=== PATIENT | male | born 1990 | race Hispanic/Latino ===

== ENCOUNTER 2018-01-09 18:42 | Emergency (ER) | payer SELFPAY ==
[2018-01-09] MEDS ORDERED: FENTANYL CITR 100 MCG/2 ML ONE (19:11)
[2018-01-09] MEDS ORDERED: ONDANSETRON 4 MG/2 ML VIAL ONE (19:11)
--- NOTE | 2018-01-09 19:30 | RAD REPORT ---
EXAM DESCRIPTION: CT - CTHCSPWOC - 01/09/2018 7:19 pm CLINICAL HISTORY: Fall, head and neck injury COMPARISON: None. TECHNIQUE: Axial 5 mm thick images of the head were obtained. Axial 2 mm thick images of the cervic al spine were obtained with sagittal and coronal reconstruction images generated and reviewed. All CT scans are performed using dose optimization technique as appropriate and may include automated exposure control or mA/KV adjustment according to patient size. FINDINGS: No intracranial hemorrhage, mass, edema or acute intracranial finding. Ventricles are normal. No extr a-axial fluid collections. Mastoid air cells and paranasal sinuses are clear. No globe or orbit abnor mality seen. Cervical body height and alignment are normal. No disk space narrowing. No fracture or acute bony abn ormality. No paraspinal mass or hematoma. IMPRESSION: Negative CT head examination for acute or significant finding. Negative CT cervical spine examination for acute or significant finding.
[2018-01-09 19:33] LABS: Absolute Lymphocytes (CBC) 0.8 K/uL (0.7-4.9); Absolute Neutrophil 6.4 K/uL (1.8-8.0); Basophils % 0.3 % (0-1.3); Eosinophils % 0.5 % (0-4.4); Hematocrit 41.4 % (39.6-49.0); Lymphocytes % 10.1 % (15.3-44.8); MCH 30.2 pg (27.0-35.0); MCV 89.1 fL (80-100); MPV 9.5 fL (7.6-11.3); RBC Red Blood Cell Count 4.65 M/uL (4.33-5.43)
[2018-01-09 19:44] LABS: Potassium 3.6 mEq/L (3.6-5.0)
--- NOTE | 2018-01-09 20:35 | RAD REPORT ---
EXAM DESCRIPTION: RAD - Lumbar Spine 3 Views - 01/09/2018 8:01 pm CLINICAL HISTORY: Fall, back pain COMPARISON: None. FINDINGS: A three-view lumbar spine examination was performed. Lumbar bodies are normal in height an d alignment. No fracture or acute bony process seen. No disc space narrowing. No other significant fi ndings. No pars defects identified. IMPRESSION: Negative Lumbar Spine examination.
--- NOTE | 2018-01-09 20:35 | RAD REPORT ---
EXAM DESCRIPTION: RAD - Thoracic Spine Ap/Lat - 01/09/2018 8:02 pm CLINICAL HISTORY: Fall, thoracic pain COMPARISON: None. FINDINGS: AP, swimmer's & lateral views of the thoracic spine were obtained. Thoracic bodies are nor mal in height and alignment. There are no acute or destructive bony processes seen. No paraspinal mas ses are identified. No disc space narrowing. IMPRESSION: Negative thoracic spine examination.
--- NOTE | 2018-01-09 20:35 | RAD REPORT ---
EXAM DESCRIPTION: RAD - Pelvis - 01/09/2018 8:02 pm CLINICAL HISTORY: Fall, pelvic pain COMPARISON: None. TECHNIQUE: AP imaging of the pelvis was obtained. FINDINGS: No fracture. No dislocation of either femur. SI joints and pubic symphysis are normal. No soft tissue abnormality. IMPRESSION: Negative pelvis
--- NOTE | 2018-01-09 20:36 | RAD REPORT ---
EXAM DESCRIPTION: RAD - Chest Single View - 01/09/2018 8:07 pm CLINICAL HISTORY: Fall, chest trauma COMPARISON: None. TECHNIQUE: AP portable chest image was obtained 1957 hours . FINDINGS: Lungs are clear. Heart and vasculature are normal. No measurable pleural effusion and no p neumothorax. No gross bony abnormality seen. No acute aortic findings suspected. IMPRESSION: No acute cardiopulmonary process.
--- NOTE | 2018-01-09 20:37 | ER ---
Nurse's Notes [facility] Name: Kishore Gupta Age: 27 yrs Sex: Male : 1990 Arrival Date: 01/09/2018 Time: 18:43 Bed 30 Private MD: Diagnosis: Superficial injury of head;Strain of muscle, fascia and tendon at neck level Presentation: 01/09 18:52 Presenting complaint: Patient states: Fell on top of head approx 90 min [employer]. Denies aj LOC. Reports neck and shoulder pain. Swelling noted to top of head. Transition of care: patient was not received from another setting of care. Mechanism of Injury: resulted from a fall. Onset of symptoms was January 09, 2018. Care prior to arrival: None. 18:52 Method Of Arrival: Ambulatory aj 18:52 Acuity: RAUL 3 aj Triage Assessment: 18:54 General: Appears in no apparent distress. uncomfortable, Behavior is calm, cooperative, aj appropriate for age. Pain: Complains of pain in back of neck and posterior chest Pain currently is 7 out of 10 on a pain scale. Neuro: Level of Consciousness is awake, alert, obeys commands, Oriented to person, place, time, situation, Appropriate for age Reports. Respiratory: Airway is patent Respiratory effort is even, unlabored, Respiratory pattern is regular, symmetrical. Derm: Skin is intact, is healthy with good turgor, Skin is pink, warm \T\ dry. normal. Historical: - Allergies: 18:54 No Known Allergies; aj - Home Meds: 18:54 None [Active]; aj - PMHx: 18:54 None; aj - PSHx: 18:54 None; aj - Immunization history:: Adult Immunizations up to date. - Social history:: Smoking status: Patient/guardian denies using tobacco. - Family history:: not pertinent. - Hospitalizations: : No recent hospitalization is reported. Screenin:05 Abuse screen: Denies threats or abuse. rk2 19:05 Nutritional screening: No deficits noted. Tuberculosis screening: No symptoms or risk rk2 factors identified. Fall Risk None identified. Assessment: 19:05 General: Appears in no apparent distress. well groomed, well developed, well nourished. rk2 19:05 Pain: Complains of pain in top of head and C6 and C5 and C4 and back of neck. Neuro: rk2 Level of Consciousness is alert, obeys commands, Oriented to person, place, time, situation, [employer] are equal bilaterally Pupils are PERRLA. Respiratory: Airway is patent Respiratory effort is even, unlabored, Respiratory pattern is regular, symmetrical. Derm: Skin is pink, warm \T\ dry. 20:20 Reassessment: Pt. returned from CT and medications given. Pt. appears to be in no rk2 obvious distress... no needs voiced \T\ this time. \T\ bedside. Vital Signs: 18:54 BP 157 / 100; Pulse 94; Resp 20; Temp 99.2; Pulse Ox 100% on R/A; Weight 106.59 kg; aj Height 5 ft. 8 in. (172.72 cm); Pain 7/10; 20:14 BP 135 / 86; Pulse 87; Resp 17; Pulse Ox 98% ; rk2 20:51 BP 124 / 78; Pulse 89; Resp 16; Pulse Ox 98% on R/A; rk2 18:54 Body Mass Index 35.73 (106.59 kg, 172.72 cm) aj [place] Coma Score: 18:52 Eye Response: spontaneous(4). Verbal Response: oriented(5). Motor Response: obeys commands(6). Total: 15. ED Course: 18:43 Patient arrived in ED. as 18:54 Triage completed. aj 18:54 Arm band placed on right wrist. Patient placed in an exam room. C-collar applied. aj 19:04 Carl Hung MD is Attending Physician. wa 19:05 Patient has correct armband on for positive identification. Bed in low position. Call rk2 light in reach. Side rails up X2. 19:05 Inserted saline lock: 18 gauge in right antecubital area, using aseptic technique. rk2 19:08 Kathe Duenas, RN is Primary Nurse. rk2 19:10 Radiology exam delayed due to PT GOING TO CT FIRST. ml 19:[address] via stretcher. kc3 19:18 CT completed. Patient tolerated procedure well. Patient moved to radiology. kc3 19:18 CT Head C Spine In Process Unspecified. EDMS 19:23 XRAY Thoracic Spine (Ap/lat) Sent. rk2 19:23 XRAY Lumbar Spine (3 Views) Sent. rk2 19:24 Attending Physician role handed off by Carl Hung MD cha 19:24 Andrew Varela MD is Attending Physician. dominick 19:56 XRAY Pelvis In Process Unspecified. EDMS 19:56 XRAY Chest (1 view) In Process Unspecified. EDMS 19:56 XRAY Lumbar Spine (3 Views) In Process Unspecified. EDMS 19:56 XRAY Thoracic Spine (Ap/lat) In Process Unspecified. EDMS 20:51 No provider procedures requiring assistance completed. IV discontinued. rk2 Administered Medications: 20:21 Drug: Zofran 4 mg Route: IVP; Site: right antecubital; rk2 20:45 Follow up: Response: No adverse reaction rk2 20:22 Drug: fentaNYL (PF) 75 mcg Route: IVP; Site: right antecubital; rk2 20:45 Follow up: Response: No adverse reaction; Pain is decreased rk2 Outcome: 20:36 Discharge ordered by . [facility] 20:51 Discharged to home ambulatory, with family. rk2 20:51 Condition: good 20:51 Discharge instructions given to patient, family, Prescriptions given X 2. 20:52 Patient left the ED. rk2 Signatures: Dispatcher [employer] Milka Joseph, RN Andrew Vidal MD MD cha Martinez, Amelia as Lopez, Melissa ml Appiah, William, MD MD wa Kidder, Rhonda RN RN rk2 Miranda Catherine kc3
--- NOTE | 2018-01-09 20:37 | EDPHYS ---
Physician Documentation [facility] Name: Kishore Gupta Age: 27 yrs Sex: Male : 1990 Arrival Date: 01/09/2018 Time: 18:43 Bed 30 Private MD: ED Physician Andrew Varela HPI: 01/09 19:10 This 27 yrs old Male presents to ER via Ambulatory with complaints of Head wa Injury-Adult, Neck Pain, <24hrs Old. 19:10 The patient or guardian reports injury, pain, tenderness, tilted on an inversion table. wa landed directly on head. c/o head and neck pain. denies LOC. denies nausea and vomiting. denies numbness and tingling down the extremities. The complaints affect the head and neck. Context of injury: The problem [place] park, resulted from falling and landing head first from a tilt table. Onset: The symptoms/episode began/occurred today. Associated signs and symptoms: Loss of consciousness: This patient did not experience any loss of consciousness. Pertinent positives: injury, Pertinent negatives: vomiting, weakness in extremities. Severity of symptoms: At their worst the symptoms were moderate, in the emergency department the symptoms are unchanged. The patient has not experienced similar symptoms in the past. The patient has not recently seen a physician. Historical: - Allergies: 18:54 No Known Allergies; aj - Home Meds: 18:54 None [Active]; aj - PMHx: 18:54 None; aj - PSHx: 18:54 None; aj - Immunization history:: Adult Immunizations up to date. - Social history:: Smoking status: Patient/guardian denies using tobacco. - Family history:: not pertinent. - Hospitalizations: : No recent hospitalization is reported. ROS: 19:13 Constitutional: Negative for fever, chills, and weight loss, Eyes: Negative for injury, wa pain, redness, and discharge, ENT: Negative for injury, pain, and discharge, Cardiovascular: Negative for chest pain, palpitations, and edema, Respiratory: Negative for shortness of breath, cough, wheezing, and pleuritic chest pain, Abdomen/GI: Negative for abdominal pain, nausea, vomiting, diarrhea, and constipation, Back: Negative for injury and pain, : Negative for injury, bleeding, discharge, and swelling, MS/Extremity: Negative for injury and deformity, Skin: Negative for injury, rash, and discoloration. 19:13 Neck: Positive for pain at rest, stiffness, tenderness, Negative for swelling. 19:13 Skin: Positive for swelling, of the top of scalp, Negative for ecchymosis, erythema. 19:13 Neuro: Negative for altered mental status, dizziness, gait disturbance, headache, loss of consciousness. 19:13 All other systems are negative. Exam: 19:14 Constitutional: This is a well developed, well nourished patient who is awake, alert, wa and in no acute distress. Head/Face: Normocephalic, atraumatic. Eyes: Pupils equal round and reactive to light, extra-ocular motions intact. Lids and lashes normal. Conjunctiva and sclera are non-icteric and not injected. Cornea within normal limits. Periorbital areas with no swelling, redness, or edema. ENT: Nares patent. No nasal discharge, no septal abnormalities noted. Tympanic membranes are normal and external auditory canals are clear. Oropharynx with no redness, swelling, or masses, exudates, or evidence of obstruction, uvula midline. Mucous membranes moist. Chest/axilla: Normal chest wall appearance and motion. Nontender with no deformity. No lesions are appreciated. Cardiovascular: Regular rate and rhythm with a normal S1 and S2. No gallops, murmurs, or rubs. Normal PMI, no JVD. No pulse deficits. Respiratory: Lungs have equal breath sounds bilaterally, clear to auscultation and percussion. No rales, rhonchi or wheezes noted. No increased work of breathing, no retractions or nasal flaring. Abdomen/GI: Soft, non-tender, with normal bowel sounds. No distension or tympany. No guarding or rebound. No evidence of tenderness throughout. Back: No spinal tenderness. No costovertebral tenderness. Full range of motion. Skin: Warm, dry with normal turgor. Normal color with no rashes, no lesions, and no evidence of cellulitis. MS/ Extremity: Pulses equal, no cyanosis. Neurovascular intact. Full, normal range of motion. 19:14 Head/face: Noted is swelling, that is moderate, of the top of head. 19:14 Neck: C-spine: vertebral tenderness, that is mild, appreciated at C4, C5 and C6, no step-offs, Trachea: is midline with no obvious abnormalities. Vital Signs: 18:54 BP 157 / 100; Pulse 94; Resp 20; Temp 99.2; Pulse Ox 100% on R/A; Weight 106.59 kg; aj Height 5 ft. 8 in. (172.72 cm); Pain 7/10; 20:14 BP 135 / 86; Pulse 87; Resp 17; Pulse Ox 98% ; rk2 20:51 BP 124 / 78; Pulse 89; Resp 16; Pulse Ox 98% on R/A; rk2 18:54 Body Mass Index 35.73 (106.59 kg, 172.72 cm) aj [place] Coma Score: 18:52 Eye Response: spontaneous(4). Verbal Response: oriented(5). Motor Response: obeys aj commands(6). Total: 15. MDM: 19:04 Patient medically screened. ri 19:16 Differential diagnosis: Contusion of Hematoma on Intracranial bleed- Concussion r/o ri acute fracture. axial load injury. will immobilize, CT, x-rays and reassess. 01/09 19:06 Order name: Basic Metabolic Panel; Complete Time: 20:33 ri 01/09 19:06 Order name: CBC with Diff; Complete Time: 20:33 ri 01/09 19:06 Order name: XRAY Pelvis ri 01/09 19:06 Order name: XRAY Chest (1 view) ri 01/09 19:06 Order name: CT Head C Spine; Complete Time: 20:33 ri 01/09 19:08 Order name: XRAY Lumbar Spine (3 Views) ri 01/09 19:06 Order name: Urine Dipstick-Ancillary (obtain specimen) ri 01/09 19:08 Order name: XRAY Thoracic Spine (Ap/lat) ri Administered Medications: 20:21 Drug: Zofran 4 mg Route: IVP; Site: right antecubital; rk2 20:45 Follow up: Response: No adverse reaction rk2 20:22 Drug: fentaNYL (PF) 75 mcg Route: IVP; Site: right antecubital; rk2 20:45 Follow up: Response: No adverse reaction; Pain is decreased rk2 Disposition: 01/09/18 20:36 Discharged to Home. Impression: Superficial injury of head, Strain of muscle, fascia and tendon at neck level. - Condition is Stable. - Discharge Instructions: Head Injury, Adult, Hematoma, Hematoma, [id number], Cervical Sprain, [id number]. - Prescriptions for Skelaxin 800 mg Oral Tablet - take 1 tablet by ORAL route every 8 hours As needed; 30 tablet. Motrin IB 200 mg Oral Tablet - take 2 tablet by ORAL route every 6 hours As needed as needed with food; 40 tablet. - Medication Reconciliation Form, Thank You Letter, Antibiotic Education, Prescription Opioid Use form. - Follow up: Private Physician; When: 2 - 3 days; Reason: Recheck today's complaints, Continuance of care, Re-evaluation by your physician. - Problem is new. - Symptoms are resolved. Signatures: Dispatcher [employer] Milka Joseph, RN RN Andrew Tamayo MD MD cha Appiah, William, MD MD wa Kidder, Rhonda RN RN rk2
== END 2018-01-09 20:52 | disposition home or self-care (01) ==
LOC: ER 18:42
DX: S16.1XXA Strain of muscle, fascia and tendon at neck level, initial encounter (principal); S00.90XA Unspecified superficial injury of unspecified part of head, initial encounter; W09.8XXA Fall on or from other playground equipment, initial encounter; Y93.89 Activity, other specified; Y92.830 Public park as the place of occurrence of the external cause
CPT/HCPCS: 36415; 70450; 71045; 72070; 72100; 72125; 72170; 80048; 85025; 96374; 96375; 99284; J2405; J3010